=== PATIENT | female | born 2000 | race Hispanic/Latino ===

== ENCOUNTER 2023-11-29 21:49 | Emergency (ER) | payer OTHER ==
[~2023-11-29] VITALS: Ht 149.9 cm; Wt 70.3 kg
[2023-11-30] MEDS ORDERED: ACETAMINOPHEN 325 MG TAB PO ONE
[2023-11-30] MEDS ORDERED: CYCL-309 PO (00:08)
[2023-11-30 01:47] VITALS: BP 126/74; PULSE 80; RESP 18; O2SAT 99
== END 2023-11-30 01:48 | disposition home or self-care (01) ==
LOC: EDH 21:49
DX: S09.90XA Unspecified injury of head, initial encounter (principal); V89.2XXA Person injured in unspecified motor-vehicle accident, traffic, initial encounter; Y93.89 Activity, other specified; Y92.89 Other specified places as the place of occurrence of the external cause; Y99.8 Other external cause status
CPT/HCPCS: 70450; 71045; 72125; 72170; 81025